=== PATIENT | male | born 1940 | race Caucasian/White ===

== ENCOUNTER 2018-04-05 15:01 | Emergency (ER) | payer OTHER ==
[~2018-04-05] VITALS: Ht 182.9 cm; Wt 80.0 kg
[2018-04-05] MEDS ORDERED: cephalexin 500mg capsule PO ONE (16:10)
[2018-04-05] MEDS ORDERED: CEPH500C5 PO (16:19)
[2018-04-05 16:20] VITALS: BP 145/105
== END 2018-04-05 16:28 | disposition home or self-care (01) ==
LOC: ER 15:02
DX: L03.116 Cellulitis of left lower limb (principal); L03.115 Cellulitis of right lower limb; K21.9 Gastro-esophageal reflux disease without esophagitis; F12.90 Cannabis use, unspecified, uncomplicated; F15.90 Other stimulant use, unspecified, uncomplicated; F22 Delusional disorders; Z90.49 Acquired absence of other specified parts of digestive tract; Z98.890 Other specified postprocedural states; Z79.2 Long term (current) use of antibiotics
CPT/HCPCS: 99283

== ENCOUNTER 2018-04-23 16:32 | Emergency (ER) | payer MEDICARE, OTHER ==
[~2018-04-23] VITALS: Ht 182.9 cm; Wt 77.0 kg
[~2018-04-23 16:32] MED LIST: CEPH500C5 PO
[2018-04-23] MEDS ORDERED: acetaminophen 325mg tablet PO STA (17:33)
[2018-04-23] MEDS ORDERED: ibuprofen tablet 400 MG TABLET PO ONE (17:35)
[2018-04-23] MEDS ORDERED: ringers solution, lacted 1,000 ML IV ONE (18:05)
[2018-04-23] MEDS ORDERED: ringers solution, lactated 1000ml IV soln IV ONE (18:05)
[2018-04-23 18:06] LABS: BASOPHILS # (AUTO) 0.1 X10'3 (0-0.2); BASOPHILS % (AUTO) 1.1 % (0-1); EOSINOPHILS # (AUTO) 0.3 X10'3 (0-0.9); EOSINOPHILS % (AUTO) 2.5 % (0-6); HEMATOCRIT 43.5 % (42.0-52.0); HEMOGLOBIN 14.1 g/dl (14.0-17.9); LYMPHOCYTES # (AUTO) 1.2 X10'3 (1.1-4.8); LYMPHOCYTES % (AUTO) 10.1 % (21-51); MEAN CORPUSCULAR HGB CONC 32.4 % (33.0-36.5); MEAN CORPUSCULAR VOLUME 89.7 FL (78-98); MEAN PLATELET VOLUME 7.7 FL (7.4-10.4); MONOCYTES # (AUTO) 0.7 X10'3 (0-0.9); MONOCYTES % (AUTO) 6.5 % (2-12); NEUTROPHILS # (AUTO) 9.1 X10'3 (1.8-7.7); NEUTROPHILS % (AUTO) 79.8 % (42-75); PLATELET COUNT 336 X10'3 (140-440); RED BLOOD COUNT 4.85 X10'6 (4.70-6.10); RED CELL DISTRIBUTION WIDTH 13.4 % (11.5-14.5); WHITE BLOOD COUNT 11.4 X10'3 (4.5-11.0)
[2018-04-23] MEDS ORDERED: morphine 4 MG/ML inj SYRINge IV ONE (18:15)
[2018-04-23] MEDS ORDERED: ondansetron/PF 4mg/2ml inj IV ONE ×2 (18:15→19:50)
[2018-04-23 18:18] LABS: ALANINE AMINOTRANSFERASE 19 U/L (12-78); ALBUMIN 2.9 G/DL (3.4-5.0); ALBUMIN/GLOBULIN RATIO 0.6 (1.1-1.5); ALKALINE PHOSPHATASE 161 IU/L (46-116); ANION GAP 6 (8-16); ASPARTATE AMINO TRANSFERASE 22 U/L (10-37); BILIRUBIN,TOTAL 0.4 MG/DL (0.1-1.0); BLOOD UREA NITROGEN 29 MG/DL (7-18); BUN/CREATININE RATIO 17.5 (5.4-32.0); CALCIUM 9.5 MG/DL (8.5-10.1); CHLORIDE 102 MMOL/L (99-107); CREATININE 1.66 MG/DL (0.60-1.10); GLUCOSE 99 MG/DL (70-104); POTASSIUM 4.1 MMOL/L (3.5-5.1); SODIUM 139 MMOL/L (135-145); TOTAL CARBON DIOXIDE 30.6 MMOL/L (24-32); TOTAL PROTEIN 7.4 G/DL (6.4-8.2); eGFR 41 ML/MIN
[2018-04-23 19:37] LABS: CLARITY,URINE CLEAR (Clear); COLOR,URINE YELLOW (Yellow); GLUCOSE, URINE NEGATIVE (Neg); KETONES,URINE NEGATIVE (Neg); LEUKOCYTE ESTERASE ,URINE NEGATIVE (Neg); NITRITES, URINE NEGATIVE (Neg); OCCULT BLOOD,URINE MODERATE (Neg); PH,URINE 6.5 (4.8-8.0); PROTEIN,URINE NEGATIVE (Neg); UROBILINOGEN,URINE 0.2 E.U/dL (0.2-1.0)
[2018-04-23 19:43] LABS: UA COLLECTION TYPE URINAL
[2018-04-23 19:47] LABS: BACTERIA,URINE NONE SEEN /HPF (Neg); SQUAMOUS EPITHELIAL CELL,UR FEW /LPF (FEW); WBC,URINE 0-4 /HPF (0-4)
[2018-04-23 19:48] LABS: FINE GRANULAR CAST 0-3 /LPF (NEGATIVE); MUCUS STRANDS FEW /LPF (Neg)
[2018-04-24 07:59] VITALS: BP 138/75
== END 2018-04-24 09:08 | disposition short-term general hospital (02) ==
LOC: ER 16:33
DX: T22.20XA Burn of second degree of shoulder and upper limb, except wrist and hand, unspecified site, initial encounter (principal); T21.25XA Burn of second degree of buttock, initial encounter; K21.9 Gastro-esophageal reflux disease without esophagitis; F12.90 Cannabis use, unspecified, uncomplicated; F15.90 Other stimulant use, unspecified, uncomplicated; Z90.49 Acquired absence of other specified parts of digestive tract; Z79.2 Long term (current) use of antibiotics; X08.8XXA Exposure to other specified smoke, fire and flames, initial encounter; Y93.89 Activity, other specified; Y92.89 Other specified places as the place of occurrence of the external cause; Y99.8 Other external cause status
CPT/HCPCS: 36415; 80053; 81001; 85025; 96361; 96374; 96375; 96376; 99285; J2270; J2405; J7120